=== PATIENT | female | born 1960 | race Caucasian/White ===

== ENCOUNTER 2017-03-12 22:46 | Emergency (ER) | payer SELFPAY ==
[~2017-03-12] VITALS: Ht 152.4 cm; Wt 63.6 kg
[~2017-03-12 22:46] MED LIST: ALBU8.5H5 INH; AZIT250T94 PO; LEVO500T72 PO; PRED20TA PO
[2017-03-12 22:51] VITALS: Ht 152.4 cm; Wt 63.6 kg
== END 2017-03-13 00:34 | disposition left against medical advice (07) ==
LOC: FTE 22:46
DX: Z53.21 Procedure and treatment not carried out due to patient leaving prior to being seen by health care provider (principal)

== ENCOUNTER 2018-10-21 14:33 | Emergency (ER) | payer OTHER ==
[~2018-10-21] VITALS: Ht 149.9 cm; Wt 66.8 kg
[~2018-10-21 14:33] MED LIST changes: +AZIT250T PO; -AZIT250T94 PO; +LEVO500T48 PO; -LEVO500T72 PO
[2018-10-21 14:36] VITALS: BP 164/75; PULSE 67; RESP 18; Ht 149.9 cm; Wt 66.8 kg
[2018-10-21] MEDS ORDERED: PRED20TA PO (14:51)
[2018-10-21] MEDS ORDERED: ALBU18HF INHALATION (14:51)
[2018-10-21] MEDS ORDERED: IBUP-1542 PO (14:51)
[2018-10-21] MEDS ORDERED: D-ME473S2 PO (14:51)
[2018-10-21] MEDS ORDERED: AZIT250T PO (14:51)
--- NOTE | 2018-10-21 14:53 | ERD ---
ER Documentation Chief Complaint Chief Complaint cough, congestion & upper back pain x4 days HPI ED 3. 58-year-old female presents with 3-day history of coughing which is productive. Subjective fevers. Upper back pain with coughing. She denies anterior chest pain, vomiting, abdominal pain. She may have history of intermittent wheezing with URIs. She has a history of prediabetes. She denies history of hypertension. ROS All systems reviewed and are negative except as per history of present illness. Medications Home Meds Active Scripts Albuterol Sulfate* (Ventolin HFA*) 18 Gm Hfa.aer.ad, 2 PUFF INHALATION Q4H, #1 INHALER Prov:TAMERA VILLATORO MD 10/21/18 Ibuprofen* (Motrin*) 600 Mg Tab, 600 MG PO Q6, #15 TAB Prov:TAMERA VILLATORO MD 10/21/18 Dextromethorphan Hb-Promethazine Hcl* (Promethazine DM* Syrup) 473 Ml Syrup, 5 ML PO Q6 PRN for COUGH for 5 Days, ML Prov:TAMERA VILLATORO MD 10/21/18 Azithromycin* (Zithromax*) 250 Mg Tablet, 250 MG PO .ZPACK DIRECTED, #6 TAB TAKE 500 MG (2 TABS) THE FIRST DAY THEN 250 MG (1 TAB) DAYS 2-5 Prov:TAMERA VILLATORO MD 10/21/18 Prednisone* (Prednisone*) 20 Mg Tab, 40 MG PO DAILY for 5 Days, TAB Prov:TAMERA VILLATORO MD 10/21/18 Levofloxacin* (Levaquin*) 500 Mg Tablet, 500 MG PO DAILY for 7 Days, TAB Prov:LOREN LOVELACE PA-C 01/19/15 Azithromycin* (Zithromax*) 250 Mg Tablet, 250 MG PO .ZPACK DIRECTED, #6 TAB TAKE 500 MG (2 TABS) THE FIRST DAY THEN 250 MG (1 TAB) DAYS 2-5 Prov:DOMONIQUE PARSONS MD 01/11/15 Prednisone* (Prednisone*) 20 Mg Tab, 40 MG PO DAILY for 4 Days, TAB Prov:DOMONIQUE PARSONS MD 01/11/15 Albuterol Sulfate* (Albuterol Sulfate* HFA) 8.5 Gm Hfa.aer.ad, 1-2 PUFF INH Q4 PRN for SHORTNESS OF BREATH, #1 EA Prov:DOMONIQUE PARSONS MD 01/11/15 Allergies Allergies: Coded Allergies: No Known Allergy (Unverified , 01/11/15) PMhx/Soc Hx Alcohol Use: No Hx Substance Use: No Hx Tobacco Use: No Smoking Status: Never smoker FmHx Family History: No diabetes, No coronary disease, No other Physical Exam Vitals Vital Signs Date Temp Pulse Resp B/P (MAP) Pulse Ox O2 O2 Flow FiO2 Time Delivery Rate 10/21/18 97.7 67 18 164/75 98 14:36 (104) Physical Exam Const: No acute distress Head: Atraumatic Eyes: Normal Conjunctiva ENT: Normal External Ears, Nose and Mouth. TMs and oropharynx normal. Neck: Full range of motion. No meningismus. Resp: Clear to auscultation bilaterally with minimal forced wheeze without wheeze at rest no rales or retractions. Cardio: Regular rate and rhythm, no murmurs Abd: Soft, non tender, non distended. Normal bowel sounds Skin: No petechiae or rashes Back: No midline or flank tenderness Ext: No cyanosis, or edema Neur: Awake and alert Psych: Normal Mood and Affect Procedures/MDM Patient presents with minimal wheeze, productive cough for last 3 days. She has no signs of hypoxemia, respiratory distress, signs of pneumonia. She may have viral URI although given worsening symptoms, we will treat with a short course of prednisone, Zithromax, Ventolin, primary care follow-up and return precaution s. She has no symptoms of chest pain, abdominal pain, dyspnea concerning signs or symptoms. The patient was stable with no new complaints during the ER course. Clinically, there is no current evidence to suggest meningitis, sepsis, acute abdomen, pneumonia, stroke, acute coronary syndrome, pulmonary embolism, aortic dissection or any other emergent condition appearing to require further evaluation or hospitalization. Patient counseled regarding my diagnostic impression and care plan. Prior to discharge all questions answered. Pt agrees with treatment plan and understands strict return precautions. Pt is instructed to follow up with primary care provider within 24-48 hours. Precautionary instructions provided including instructions to return to the ER if not improving or for any worsening or changing symptoms or concerns. The patient's blood pressure was elevated (>120/80) but appears stable without evidence of hypertension emergency or urgency. The patient was counseled about the risks of hypertension and urged to pursue outpatient monitoring and therapy within a week with their primary care physician. I discussed the findings with the patient. I advised the patient to follow-up with the primary physician in about 1-2 days, sooner if needed and return if any concern. Departure Diagnosis: Primary Impression: Cough Condition: Stable Patient Instructions: Bronchitis With Wheezing (Adult) Additional Instructions: Cheque otro vez con johnson doctor primario en el proximo pope or regresa para mas o nueva simptomas. TAMERA VILLATORO MD Oct 21, 2018 14:53
== END 2018-10-22 15:00 | disposition home or self-care (01) ==
LOC: E/R 14:33
DX: R05 Cough (principal)
CPT/HCPCS: 99283